=== PATIENT | male | born 1940 | race Caucasian/White ===

== ENCOUNTER 2016-09-02 07:23 | Day surgery (SDC) | payer MEDICARE, BC ==
[2016-09-02] MEDS ORDERED: Sodium Chloride 0.9% 1,000 ML IV SCH (08:00)
[2016-09-02] MEDS ORDERED: Propofol 200 MG/20 ML SDV ONE ×2 (08:04→08:37)
[2016-09-02] MEDS ORDERED: fentaNYL 100 MCG/2 ML SDV ONE (08:05)
[2016-09-02 10:50] VITALS: BP 119/66
--- NOTE | 2016-09-02 13:37 | OR ---
DATE OF PROCEDURE: 09/02/2016 PROCEDURE: Colonoscopy. FINDINGS: 1. Ascending colon polyp, 5 mm, completely removed using cold biopsy forceps. 2. Diverticulosis, mild, throughout the entire colon, but most concentrated in the sigmoid colon. COMPLICATIONS: None. POT FILLER: None. PREOPERATIVE DIAGNOSIS: Family history of colorectal cancer. POSTOPERATIVE DIAGNOSIS: Family history of colorectal cancer. The risks benefits, alternatives, and limitations, including balance infection bleeding and perforation were explained to the patient, who wished to proceed. PROCEDURE IN DETAIL: The patient was placed in left lateral decubitus position. Digital rectal exam was performed without abnormality. The scope was introduced and advanced atraumatically to the ileocecal valve. The scope was brought back to the ascending, transverse, descending colon, and retroflexed. The ascending colon polyp was identified and completely removed. The diverticulosis would be described as mild and mostly in the sigmoid colon, but few scattered throughout. No abnormalities on retroflexion. The patient tolerated the procedure well. Jonatan Hyatt MD /[id number]
== END 2016-09-02 10:45 | disposition home or self-care (01) ==
LOC: JP.SDS 07:23
PROVIDERS: ATTEND Surgery
DX: Z12.11 Encounter for screening for malignant neoplasm of colon (principal); D12.2 Benign neoplasm of ascending colon; K57.30 Diverticulosis of large intestine without perforation or abscess without bleeding; Z80.0 Family history of malignant neoplasm of digestive organs; E78.00 Pure hypercholesterolemia, unspecified; I10 Essential (primary) hypertension; E66.3 Overweight; G47.30 Sleep apnea, unspecified; N40.0 Benign prostatic hyperplasia without lower urinary tract symptoms; R25.1 Tremor, unspecified; Z79.899 Other long term (current) drug therapy; Z79.82 Long term (current) use of aspirin
CPT/HCPCS: 45380; J2704; J3010; J7040; 88305

== ENCOUNTER 2021-02-09 10:59 | Day surgery (SDC) | payer MEDICARE, BC ==
[~2021-02-09 10:59] MED LIST: Propofol 200 MG/20 ML SDV ONE; fentaNYL 100 MCG/2 ML SDV ONE
[2021-02-09] MEDS ORDERED: Sodium Chloride 0.9% 1,000 ML IV SCH (11:30)
[2021-02-09 13:16] VITALS: BP 126/78; PULSE 57
--- NOTE | 2021-02-10 08:28 | OR ---
DATE OF PROCEDURE: 02/09/2021 SURGEON: Jonatan Hyatt MD PROCEDURE: Colonoscopy. FINDINGS: 1. Diverticulosis, mild, mostly limited to sigmoid colon. 2. Tortuous sigmoid colon. COMPLICATION: None. MANAGER OF IT: None. ANESTHETIC: MAC. PREOPERATIVE DIAGNOSIS: Screening colonoscopy. POSTOPERATIVE DIAGNOSIS: Screening colonoscopy. RISKS: Risks, benefits, alternatives, and limitations, including, but not limited to, infection, bleeding, perforation, false positives, and false negatives, were explained to the patient, who wished to proceed. PROCEDURE IN DETAIL: The patient was placed in the left lateral decubitus position. A digital rectal exam was performed without abnormality. The scope was introduced and advanced atraumatically to the appendiceal orifice. A photo was taken. The scope was brought back to the ascending, transverse, and descending colon and retroflexed. No evidence of old or new blood. No masses. No polyps. The diverticulosis described as above without evidence of diverticulitis or bleeding. Greater than 8 minutes was spent removing the scope. The prep was marginal. Approximately 85% of the luminal surface could be seen due to some solid and liquid stool remaining. No abnormalities on retroflex. The patient tolerated the procedure well. Jonatan Hyatt MD /[id number]
== END 2021-02-09 13:38 | disposition home or self-care (01) ==
LOC: JP.SDS 10:59
PROVIDERS: ATTEND Surgery
DX: Z12.11 Encounter for screening for malignant neoplasm of colon (principal); K57.30 Diverticulosis of large intestine without perforation or abscess without bleeding; K63.89 Other specified diseases of intestine; I10 Essential (primary) hypertension; E78.00 Pure hypercholesterolemia, unspecified; G47.33 Obstructive sleep apnea (adult) (pediatric); Z88.8 Allergy status to other drugs, medicaments and biological substances
CPT/HCPCS: G0121; J2704; J3010; J7030